=== PATIENT | male | born 1975 | race Caucasian/White ===

== ENCOUNTER 2018-04-26 08:59 | Emergency (ER) | payer BC ==
[2018-04-26 09:34] VITALS: BP 118/79
--- NOTE | 2018-04-26 09:46 | ER Document Report ---
HPI - HPI Patient complains to provider of: Right ear pain Pain Level: 3 Context: Patient is a 43-year-old male complaining of right ear pain. 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 Patient complains of increasing sinus pain pressure and drainage and right ear pain over the past week. Patient does admit to swimming in the ocean recently. No fever Associated Symptoms: None Exacerbated by: Denies Relieved by: Denies Similar symptoms previously: Yes Recently seen / treated by doctor: No - ROS Systems Reviewed and Negative: Yes All other systems reviewed and negative - EENT EENT: REPORTS: Sore Throat, Ear Pain Past Medical History - General Information source: Patient - Social History Smoking Status: Never Smoker Chew tobacco use (# tins/day): No Frequency of alcohol use: None Lives with: Family Family History: Reviewed & Not Pertinent Patient has suicidal ideation: No Patient has homicidal ideation: No - Past Medical History Cardiac Medical History: Reports: Hx Hypertension Renal/ Medical History: Denies: Hx Peritoneal Dialysis Psychiatric Medical History: Reports: Hx Depression Vertical Provider Document - CONSTITUTIONAL Agree With Documented VS: Yes Exam Limitations: No Limitations - HEENT HEENT: Atraumatic, PERRLA Notes: Positive perforation to right eardrum with purulent drainage. Mild right preauricular tenderness mild postauricular tenderness mastoid is nontender - RESPIRATORY Respiratory: Breath Sounds Normal - CARDIOVASCULAR Cardiovascular: Regular Rate - MUSCULOSKELETAL/EXTREMETIES Musculoskeletal/Extremeties: MAEW Course - Re-evaluation Re-evalutation: 04/26/18 09:41 Low suspicion for mastoiditis. History and physical are consistent with acute otitis externa and otitis media. Course of oral and topical antibiotics will be prescribed. Short course of pain medication prescribed. Patient instructed to follow-up with ENT within the next several days. Patient is established with ENT in [place]. Home care, ENT follow-up and ED return precautions were discussed with the patient. Patient is agreeable with plan and stable for discharge - Vital Signs Vital signs: Temp Pulse Resp BP Pulse Ox 97.4 F 52 L 18 118/79 97 04/26/18 09:16 04/26/18 09:16 04/26/18 09:16 04/26/18 09:16 04/26/18 09:16 Discharge - Discharge Clinical Impression: Acute otitis externa of right ear Qualifiers: Otitis externa type: unspecified type Qualified Code(s): H60.501 - Unspecified acute noninfective otitis externa, right ear Acute suppur right otitis media w/o spontan rupture tympanic membrane Qualifiers: Recurrence: not specified as recurrent Qualified Code(s): H66.001 - Acute suppurative otitis media without spontaneous rupture of ear drum, right ear Condition: Stable Disposition: HOME, SELF-CARE Instructions: Oral Narcotic Medication ([facility]), Otitis Externa ([facility]), Otitis Media ([facility]), Antibiotic Therapy ([facility]) Additional Instructions: Take medications as prescribed Keep ear completely dry 1 week Follow-up with ENT as soon as possible for further evaluation and treatment Prescriptions: Amox Tr/Potassium Clavulanate [Augmentin 875-125 Tablet] 1 tab PO BID 10 Days tablet Ciprofloxacin HCl/Dexameth [Ciprodex Otic Suspension Drops] 3 drop BTH_EAR BID # 1 bottle Hydrocodone/Acetaminophen [[place] 5-325 mg Tablet] 1 tab PO Q6H PRN #12 tablet PRN Reason:
== END 2018-04-26 09:51 | disposition home or self-care (01) ==
LOC: ER 08:59
DX: H60.501 Unspecified acute noninfective otitis externa, right ear (principal); H66.001 Acute suppurative otitis media without spontaneous rupture of ear drum, right ear; H92.01 Otalgia, right ear; I10 Essential (primary) hypertension
CPT/HCPCS: 99283